=== PATIENT | female | born 1940 | race Hispanic/Latino ===

== ENCOUNTER 2022-08-01 03:35 | Inpatient (IN) | payer MEDICARE ==
[2022-08-01 08:06] LABS: Alanine Aminotransferase 28 units/L (7-56); Albumin 3.1 g/dL (3.9-5); Blood Urea Nitrogen 27 mg/dL (7-17); Calcium 8.8 mg/dL (8.4-10.2); Hemolysis Index 8
[2022-08-01 08:12] LABS: BUN/Creatinine Ratio 68
--- NOTE | 2022-08-01 08:19 | XRay Report ---
XR hip 2-3V LT INDICATION: trauma. COMPARISON: None available. FINDINGS: Previous internal fixation of the proximal left femur. No appreciable acute fracture or hardware frac ture. 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 Signer Name: Néstor Amador MD Signed: 08/01/2022 8:15 AM Workstation Name: [id number]
--- NOTE | 2022-08-01 08:19 | XRay Report ---
CHEST 1 VIEW 08/01/2022 7:12 AM INDICATION / CLINICAL INFORMATION: sob. COMPARISON: None available. FINDINGS: SUPPORT DEVICES: None. HEART / MEDIASTINUM: No significant abnormality. LUNGS / PLEURA: No significant pulmonary or pleural abnormality. No pneumothorax. ADDITIONAL FINDINGS: No significant additional findings. IMPRESSION: 1. No acute findings. Signer Name: Néstor Amador MD Signed: 08/01/2022 8:14 AM Workstation Name: [id number]
[2022-08-01 08:24] LABS: Basophils % (Auto) 0.2 % (0.0-1.8); Eosinophils # (Auto) 0.2 K/mm3 (0.0-0.4); Hematocrit 38.8 % (30.3-42.9); Hemoglobin 12.9 gm/dl (10.1-14.3); Lymphocytes # (Auto) 1.5 K/mm3 (1.2-5.4); Lymphocytes % (Auto) 19.3 % (13.4-35.0); Mean Corpuscular HGB Conc 33 % (30-34); Mean Corpuscular Volume 88 fl (79-97); Monocytes # (Auto) 0.7 K/mm3 (0.0-0.8); Monocytes % (Auto) 9.1 % (0.0-7.3); Platelet Count 159 K/mm3 (140-440); Red Blood Count 4.42 M/mm3 (3.65-5.03); Red Cell Distribution Width 14.3 % (13.2-15.2)
--- NOTE | 2022-08-01 10:47 | XRay Report ---
LEFT KNEE 2 VIEW(S) INDICATION / CLINICAL INFORMATION: fall COMPARISON: None available. FINDINGS: BONES / JOINT(S): There is an oblique spiral type distal left femoral diaphyseal fracture with signif icant fracture fragment overlap and one shaft length displacement. No additional fractures. There is advanced osteopenia. Degenerative changes are noted at the left knee. Cortical plate with screw fixat ion is seen across proximal tibial fracture. There appears to be a healed fibular fracture. SOFT TISSUES: Soft tissue swelling is noted about the fracture. ADDITIONAL FINDINGS: None. IMPRESSION: 1. Distal left humerus fracture as described above. Advanced osteopenia. Signer Name: William Hoffman MD Signed: 08/01/2022 10:43 AM Workstation Name: [id number]
[2022-08-01] MEDS ORDERED: SODIUM CHLORIDE 0.9% 1000 ML 1,000 ML IV ONE (12:21)
--- NOTE | 2022-08-01 13:35 | Consultation ---
History of Present Illness - HPI Consult date: 08/01/22 Consult reason: joint pain (82 y/o female with c/o left thigh pain and deformity after a fall at home, unable to weightbear afterwards..Brought to our ED where plain xrays taken reveal a displace distal femur fracture...PMHx sign for previo us ORIF's right hip and tibial plateau fx's...), fracture Medications and Allergies Allergies Allergy/AdvReac Type Severity Reaction Status Date / Time No Known Allergies Allergy Unverified 08/01/22 03:39 Physical Examination - Physical exam Narrative exam: left LE - + shortening/deformity, skin intact, tender at distal femur, compartments soft, distal n/v intact... plain xrays reviewed by me and show moderated displaced distal third femur fx, + osteopenic bone quality noted... Eyes: PERRL ENT: Positive: clear oral mucosa Respiratory effort: normal Respiratory: bilateral: CTA Rhythm: regular Heart Sounds: Positive: S1 & S2 General gastrointestinal: Positive: soft, non-tender, non-distended, normal bowel sounds Integumentary: clear, warm, dry Neurologic: Positive: CNII-XII intact, moves all extremities, gait normal. Negative: focal deficits Assessment and Plan assessment - left distal femur fx with displacement plan - long leg posterior splint, will require operative intervention with IM nail, followed PT and rehab....
--- NOTE | 2022-08-01 15:48 | Anesthesia Consultation ---
Anesthesia Consult and Med Hx Date of service: 08/01/22 - Airway Anesthetic Teeth Evaluation: Dentures (Upper and lower full plates) ROM Head & Neck: Adequate Mental/Hyoid Distance: Adequate Mallampati Class: Class I Intubation Access Assessment: Good - Pulmonary Exam CTA: Yes - Pre-Operative Health Status ASA Pre-Surgery Classification: ASA2 Proposed Anesthetic Plan: General - Pulmonary Hx Smoking: No Hx Asthma: No SOB: No - Cardiovascular System Hx Hypertension: No Hx Angina: No Hx Heart Murmur: Yes - Central Nervous System Hx Neuromuscular Disorder: No Hx Seizures: No Hx Psychiatric Problems: No - Endocrine Hx Renal Disease: No Hx Liver Disease: No Hx Insulin Dependent Diabetes: No Hx Non-Insulin Dependent Diabetes: No Hx Thyroid Disease: No - Hematic Hx Anemia: No - Other Systems Hx Alcohol Use: No Hx Obesity: No - Additional Comments Anesthesia Medical History Comments: No hx. of anesthesia related complications
[2022-08-01] MEDS ORDERED: ONDANSETRON 4 MG/2 ML INJ IV PRN (19:00)
--- NOTE | 2022-08-01 19:23 | History and Physical Report ---
History of Present Illness Date of examination: 08/01/22 Date of admission: 08/01/2022 Chief complaint: Severe pain in the left lower extremity above the knee for 2 days History of present illness: 82-year-old with history of severe dementia had a fall at home yesterday and is in severe pain. at bedside. Very poor historian. says she had a fall and unable to walk since then. Pain is about 10 on a scale of 1-10. Patient had a right hip fracture in the past. Any movement is an exacerbating factor. Rest is a relieving factor. Pain is sharp in nature. Patient is alert but not oriented to time and place and person. wants a full code. CODE STATUS was discussed in the emergency room. Past History Past Medical History: other (Severe dementia) Past Surgical History: total hip replacement (Left hip,), Other (Left tibial fracture in the past with internal fixation) Social history: , lives with family, full code, other (Full code. Pa tient is nearly bedridden and is supportive) Family history: hypertension Medications and Allergies Allergies Allergy/AdvReac Type Severity Reaction Status Date / Time No Known Allergies Allergy Unverified 08/01/22 03:39 Review of Systems All systems: negative Musculoskeletal: shooting leg pain, frequent falls, fractures Neurological: weakness, memory loss, gait dysfunction Exam - Constitutional Vitals: Temp Pulse Resp BP Pulse Ox 98.7 F 108 H 20 112/74 97 08/01/22 17:58 08/01/22 17:58 08/01/22 17:58 08/01/22 17:58 08/01/22 17:58 General appearance: Present: mild distress, well-nourished - EENT Eyes: Present: PERRL ENT: hearing intact, clear oral mucosa - Neck Neck: Present: supple, normal ROM - Respiratory Respiratory effort: normal Respiratory: bilateral: CTA - Cardiovascular Rhythm: regular Heart Sounds: Present: S1 & S2. Absent: rub, click - Extremities Extremities: no ischemia, pulses intact, pulses symmetrical, No edema, abnormal (Decreased range of motion of the left knee) Peripheral Pulses: within normal limits - Abdominal General gastrointestinal: Present: soft, non-tender, non-distended, normal bowel sounds Female genitourinary: Present: normal - Integumentary Integumentary: Present: clear, warm, dry - Musculoskeletal Musculoskeletal: generalized weakness - Psychiatric Psychiatric: other (Alert but not oriented) - Neurologic Neurologic: CNII-XII intact, moves all extremities, other (Alert but not oriented) Results - Labs CBC & Chem 7: 08/02/22 04:24 08/02/22 04:24 Labs: Laboratory Last Values WBC 7.8 K/mm3 (4.5-11.0) 08/01/22 07:14 RBC 4.42 M/mm3 (3.65-5.03) 08/01/22 07:14 Hgb 12.9 gm/dl (10.1-14.3) 08/01/22 07:14 Hct 38.8 % (30.3-42.9) 08/01/22 07:14 MCV 88 fl (79-97) 08/01/22 07:14 MCH 29 pg (28-32) 08/01/22 07:14 MCHC 33 % (30-34) 08/01/22 07:14 RDW 14.3 % (13.2-15.2) 08/01/22 07:14 Plt Count 159 K/mm3 (140-440) 08/01/22 07:14 Lymph % (Auto) 19.3 % (13.4-35.0) 08/01/22 07:14 Real % (Auto) 9.1 % (0.0-7.3) H 08/01/22 07:14 Eos % (Auto) 2.0 % (0.0-4.3) 08/01/22 07:14 Baso % (Auto) 0.2 % (0.0-1.8) 08/01/22 07:14 Lymph # (Auto) 1.5 K/mm3 (1.2-5.4) 08/01/22 07:14 Real # (Auto) 0.7 K/mm3 (0.0-0.8) 08/01/22 07:14 Eos # (Auto) 0.2 K/mm3 (0.0-0.4) 08/01/22 07:14 Baso # (Auto) 0.0 K/mm3 (0.0-0.1) 08/01/22 07:14 Seg Neutrophils % 69.4 % (40.0-70.0) 08/01/22 07:14 Seg Neutrophils # 5.4 K/mm3 (1.8-7.7) 08/01/22 07:14 Sodium 149 mmol/L (137-145) H 08/01/22 07:14 Potassium 4.0 mmol/L (3.6-5.0) 08/01/22 07:14 Chloride 112.0 mmol/L (98-107) H 08/01/22 07:14 Carbon Dioxide 25 mmol/L (22-30) 08/01/22 07:14 Anion Gap 16 mmol/L 08/01/22 07:14 BUN 27 mg/dL (7-17) H 08/01/22 07:14 Creatinine 0.4 mg/dL (0.6-1.2) L 08/01/22 07:14 Estimated GFR > 60 ml/min 08/01/22 07:14 BUN/Creatinine Ratio 68 % 08/01/22 07:14 Glucose 106 mg/dL (65-100) H 08/01/22 07:14 Calcium 8.8 mg/dL (8.4-10.2) 08/01/22 07:14 Total Bilirubin 1.30 mg/dL (0.1-1.2) H 08/01/22 07:14 AST 41 units/L (5-40) H 08/01/22 07:14 ALT 28 units/L (7-56) 08/01/22 07:14 Alkaline Phosphatase 395 units/L (35-129) H 08/01/22 07:14 Total Protein 5.7 g/dL (6.3-8.2) L 08/01/22 07:14 Albumin 3.1 g/dL (3.9-5) L 08/01/22 07:14 Albumin/Globulin Ratio 1.2 % 08/01/22 07:14 - Imaging and Cardiology Imaging and Cardiology: Chest x-ray No acute findings Hip x-ray Previous internal fixation of the proximal left femur. No appreciable acute fracture or hardware fracture. Moderate degenerative disease of the left hip joint. Left knee x-ray Distal left femoral fracture. Oblique spiral type distal left femoral diaphyseal fracture with significant fracture fragment overlap and 1 shaft alignment displacement. Cortical plate with screw fixation is seen across proximal tibial fracture which is old 1. Assessment and Plan Advance Directives: Yes (Full code) VTE prophylaxis?: Chemical Plan of care discussed with patient/family: Yes - Patient Problems (1) Left femoral shaft fracture Current Visit: Yes Status: Acute Qualifiers: Encounter type: initial encounter Fracture morphology: oblique Fracture alignment: displaced Plan to address problem: Pain control Orthopedics Dr. Quiñones consulted Possible surgery for fixation today or tomorrow (2) Hypernatremia Current Visit: Yes Status: Acute Plan to address problem: IV fluids for now (3) Dementia Current Visit: Yes Status: Chronic Qualifiers: Dementia type: vascular dementia Plan to address problem: Advanced dementia Supportive care wants a full code CODE STATUS was discussed (4) DVT prophylaxis Current Visit: Yes Status: Acute Plan to address problem: On anticoagulation GI prophylaxis (5) Advance care planning Current Visit: Yes Status: Acute Plan to address problem: Disease education conducted care plan discussed with diagnosis and uncertain prognosis discussed with . Patient is full code as per . acknowledged understanding with care plan. +30 minutes.
[2022-08-01] MEDS ORDERED: HYDROmorphone 0.5 MG/0.5 ML INJ IV PRN (19:24)
[2022-08-01] MEDS ORDERED: MORPHINE 2 MG/1 ML INJ IV PRN (19:24)
[2022-08-01] MEDS ORDERED: ACETAMINOPHEN 325 MG TAB PO PRN (19:24)
[2022-08-01] MEDS ORDERED: D5W/0.9% NACL 1,000 ML IV SCH (20:00)
[2022-08-01] MEDS ORDERED: METOPROLOL TARTRATE 5 MG/5 ML INJ IV NR (21:00)
[2022-08-01] MEDS: HEPARIN 5,000 UNIT/1 ML VIAL SUB-Q SCH (21:41)
[2022-08-02 05:05] LABS: Basophils % (Auto) 0.2 % (0.0-1.8); Eosinophils # (Auto) 0.1 K/mm3 (0.0-0.4); Eosinophils % (Auto) 1.5 % (0.0-4.3); Hematocrit 34.6 % (30.3-42.9); Hemoglobin 11.6 gm/dl (10.1-14.3); Lymphocytes # (Auto) 0.9 K/mm3 (1.2-5.4); Lymphocytes % (Auto) 14.2 % (13.4-35.0); Mean Corpuscular HGB Conc 34 % (30-34); Mean Corpuscular Volume 87 fl (79-97); Monocytes # (Auto) 0.5 K/mm3 (0.0-0.8); Monocytes % (Auto) 7.4 % (0.0-7.3); Platelet Count 131 K/mm3 (140-440); Red Blood Count 3.97 M/mm3 (3.65-5.03); Red Cell Distribution Width 14.5 % (13.2-15.2)
[2022-08-02 05:27] LABS: Alanine Aminotransferase 26 units/L (7-56); Albumin 2.9 g/dL (3.9-5); Blood Urea Nitrogen 24 mg/dL (7-17); Calcium 8.3 mg/dL (8.4-10.2); Hemolysis Index 2
[2022-08-02 05:48] LABS: BUN/Creatinine Ratio 80
[2022-08-02] MEDS: HEPARIN 5,000 UNIT/1 ML VIAL SUB-Q SCH ×2 (09:20→21:46)
[2022-08-02] MEDS ORDERED: LACTATED RINGERS 1,000 ML ONE (10:14)
[2022-08-02] MEDS ORDERED: propofoL 200 MG/20 ML VIAL IV ONE (10:28)
[2022-08-02] MEDS ORDERED: LIDOCAINE MPF (2%) 20 MG/1 ML VIAL 5 ML ONE (10:28)
[2022-08-02] MEDS ORDERED: ONDANSETRON 4 MG/2 ML INJ ONE (10:28)
[2022-08-02] MEDS ORDERED: fentaNYL 100 MCG/2 ML INJ ONE (10:28)
--- NOTE | 2022-08-02 10:35 | Anesthesia Day of Surgery ---
Anesthesia Day of Surgery - Day of Surgery Patient Examined: Yes Patient H&P Reviewed: Yes Patient is NPO: Yes Beta Blockers: No Cardiac Clearance: No Pulmonary Clearance: No
[2022-08-02] MEDS ORDERED: BUPIVACAINE/PF (0.25%) 2.5 MG/ML 10 ML VIAL INFILTRATI ONE ×2 (10:46→11:47)
[2022-08-02] MEDS ORDERED: KETOROLAC 30 MG/1 ML INJ ONE (10:46)
[2022-08-02] MEDS ORDERED: SODIUM CHLORIDE 0.9% 100 ML ONE (10:46)
[2022-08-02] MEDS ORDERED: MORPHINE 10 MG/1 ML INJ ONE (10:46)
[2022-08-02] MEDS ORDERED: SODIUM CHLORIDE 0.9% 50 ML ONE (10:46)
[2022-08-02] MEDS ORDERED: ceFAZolin 1 GM VIAL ONE ×2 (11:18)
[2022-08-02] MEDS ORDERED: dexAMETHasone 20 MG/5 ML VIAL ONE (11:44)
[2022-08-02] MEDS ORDERED: KETOROLAC 30 MG/1 ML INJ IV ONE (11:46)
[2022-08-02] MEDS ORDERED: MORPHINE 10 MG/1 ML INJ IV ONE (11:47)
[2022-08-02] MEDS ORDERED: HYDROmorphone 0.5 MG/0.5 ML INJ ONE ×2 (11:47→12:40)
[2022-08-02] MEDS ORDERED: SODIUM CHLORIDE 0.9% 100 ML IVPB IV ONE (11:48)
[2022-08-02] MEDS ORDERED: SODIUM CHLORIDE 0.9% 50 ML IVPB IV ONE (11:49)
[2022-08-02] MEDS ORDERED: ACETAMINOPHEN 650 MG RECT SUPP PR PRN (12:36)
[2022-08-02] MEDS ORDERED: MORPHINE 4 MG/1 ML INJ IV PRN (12:36)
--- NOTE | 2022-08-02 12:46 | Procedure Note ---
Date of procedure: 08/02/22 Pre-op diagnosis: Displaced left distal femur fracture Post-op diagnosis: same Procedure: Closed reduction and insertion of intramedullary nail left distal femur Procedure The patient was brought to the OR and placed on the OR table in the supine position following induction and intubation by anesthesia the patient's left lower extremity was prepped from the hip down to the right foot. A timeout procedure was done to identify the patient and the correct operative site. The leg was exsanguinated followed by inflation of the pneumatic tourniquet to 300 mmHg. An incision was made at the inferior pole of the patella and taken down distally to the tibial tubercle incision was carried through skin and through the patella tendon with the knee in a 40/90 flexed position a guide pin was inserted under C-arm visualization care was taken to visualize both in the AP and lateral planes next the guidepin was then overreamed following this a guidewire was inserted into the distal fragment and across to fracture approximately the wire was then placed in the proximal femur just at the level of the IM hip nail. Distal femur was sequentially reamed up to a 13.5 mm millimeter diameter measuring the length of the jannet a 11 x 200 mm short jannet was selected again with the knee and a 90 flexed position the intramedullary jannet was inserted in a retrograde manner into the distal femur across the fracture site and into the proximal fragment Using the targeting device was placed into the distal femur fragment along the lateral border measuring the lengths a 65 and a 70 mm long screws were selected next the knee and leg was brought into full extension traction was placed on the leg to reduce the distal femur fracture into a more reduced position Again using the C-arm fluoroscope a proximal locking screws were inserted measuring 30 and 27.5mm in length following this the wound was copiously irrigated the patellar tendon was repaired along with the soft tissues. post op Dressings were applied the patient tolerated the procedure there were no complication. He was extubated and was taken to postanesthesia recovery in stable condition Anesthesia: GETA Surgeon: ROBBY BRANDT Estimated blood loss: 50-100ml Pathology: none Condition: stable Disposition: PACU
--- NOTE | 2022-08-02 12:58 | XRay Report ---
INTRAOPERATIVE FLUOROSCOPY: LEFT FEMUR INDICATION: Lt. IM Femur. TECHNIQUE: Intraoperative spot images were obtained during the procedure. FINDINGS: There is expected positioning of internal fixation of the left femur with improved alignment of the d istal femoral shaft fracture. Please see operative report for further details. Fluoroscopy Time: 60 seconds. Fluoroscopy Images: 4. Signer Name: Sulaiman Soriano MD Signed: 08/02/2022 12:54 PM Workstation Name: [id number]
[2022-08-02] MEDS: KETOROLAC 30 MG/1 ML INJ IV PRN (13:15)
--- NOTE | 2022-08-02 13:50 | Progress Note ---
Assessment and Plan Assessment and plan: #Left femoral shaft fracture status post closed repair with intramedullary nail insertion and left femur Visualized on x-ray of left femur Orthopedic surgery consulted; appreciate recs Continue as needed analgesics. Physical and Occupational Therapy consulted; pending recs. #Hypernatremia Sodium 149 Likely secondary to dehydration/decreased p.o. intake. Encouraging patient to consume food after surgery. If dementia prevents patient from consuming p.o. intake, IV fluids can be initiated. #Baseline dementia Continue supportive management and redirection. #Advanced care planning -Disease education conducted, care plan discussed, diagnoses discussed, prognosis discussed, and patient acknowledges understanding with care plan -Time: +30 min Disposition Plan: Continue medical management Total Time Spent with Patient (Minutes): 45 minutes History Interval history: No acute events overnight. Hospitalist Physical - Constitutional Vitals: Temp Pulse Resp BP Pulse Ox 97.8 F 115 H 12 115/71 99 08/02/22 13:15 08/02/22 13:15 08/02/22 13:15 08/02/22 13:15 08/02/22 13:15 General appearance: Present: mild distress, well-nourished - EENT Eyes: Present: PERRL, EOM intact ENT: hearing intact, clear oral mucosa - Neck Neck: Present: supple, normal ROM - Respiratory Respiratory effort: normal Respiratory: bilateral: CTA - Cardiovascular Rhythm: regular Heart Sounds: Present: S1 & S2 - Extremities Extremities: no ischemia, pulses intact, pulses symmetrical, No edema, normal temperature, normal color Extremity abnormal: tenderness (Significant tenderness of left femur) Peripheral Pulses: within normal limits - Abdominal General gastrointestinal: soft, non-tender, non-distended, normal bowel sounds - Integumentary Integumentary: Present: clear, warm, dry - Psychiatric Psychiatric: appropriate mood/affect, intact judgment & insight, cooperative - Neurologic Neurologic: CNII-XII intact - Allied Health Allied health notes reviewed: nursing Results - Labs CBC & Chem 7: 08/02/22 04:24 08/02/22 04:24 Labs: Laboratory Last Values WBC 6.7 K/mm3 (4.5-11.0) 08/02/22 04:24 RBC 3.97 M/mm3 (3.65-5.03) 08/02/22 04:24 Hgb 11.6 gm/dl (10.1-14.3) 08/02/22 04:24 Hct 34.6 % (30.3-42.9) 08/02/22 04:24 MCV 87 fl (79-97) 08/02/22 04:24 MCH 29 pg (28-32) 08/02/22 04:24 MCHC 34 % (30-34) 08/02/22 04:24 RDW 14.5 % (13.2-15.2) 08/02/22 04:24 Plt Count 131 K/mm3 (140-440) L 08/02/22 04:24 Lymph % (Auto) 14.2 % (13.4-35.0) 08/02/22 04:24 Reagan % (Auto) 7.4 % (0.0-7.3) H 08/02/22 04:24 Eos % (Auto) 1.5 % (0.0-4.3) 08/02/22 04:24 Baso % (Auto) 0.2 % (0.0-1.8) 08/02/22 04:24 Lymph # (Auto) 0.9 K/mm3 (1.2-5.4) L 08/02/22 04:24 Reagan # (Auto) 0.5 K/mm3 (0.0-0.8) 08/02/22 04:24 Eos # (Auto) 0.1 K/mm3 (0.0-0.4) 08/02/22 04:24 Baso # (Auto) 0.0 K/mm3 (0.0-0.1) 08/02/22 04:24 Seg Neutrophils % 76.7 % (40.0-70.0) H 08/02/22 04:24 Seg Neutrophils # 5.1 K/mm3 (1.8-7.7) 08/02/22 04:24 Sodium 149 mmol/L (137-145) H 08/02/22 04:24 Potassium 3.8 mmol/L (3.6-5.0) 08/02/22 04:24 Chloride 113.1 mmol/L (98-107) H 08/02/22 04:24 Carbon Dioxide 25 mmol/L (22-30) 08/02/22 04:24 Anion Gap 15 mmol/L 08/02/22 04:24 BUN 24 mg/dL (7-17) H 08/02/22 04:24 Creatinine 0.3 mg/dL (0.6-1.2) L 08/02/22 04:24 Estimated GFR > 60 ml/min 08/02/22 04:24 BUN/Creatinine Ratio 80 % 08/02/22 04:24 Glucose 85 mg/dL (65-100) 08/02/22 04:24 Calcium 8.3 mg/dL (8.4-10.2) L 08/02/22 04:24 Total Bilirubin 1.40 mg/dL (0.1-1.2) H 08/02/22 04:24 AST 42 units/L (5-40) H 08/02/22 04:24 ALT 26 units/L (7-56) 08/02/22 04:24 Alkaline Phosphatase 411 units/L (35-129) H 08/02/22 04:24 Total Protein 5.3 g/dL (6.3-8.2) L 08/02/22 04:24 Albumin 2.9 g/dL (3.9-5) L 08/02/22 04:24 Albumin/Globulin Ratio 1.2 % 08/02/22 04:24 Robbins/IV: Voiding Method External Female Catheter Active Medications - Current Medications Current Medications: Generic Name Dose Route Start Last Admin Trade Name Freq PRN Reason Stop Dose Admin Acetaminophen 650 mg 08/01/22 19:24 Acetaminophen 325 Mg Tab PO Q4H PRN Pain MILD(1-3)/Fever >100.5/SESAY Acetaminophen 650 mg 08/02/22 12:36 Acetaminophen 650 Mg Rect Supp CO Q4H PRN Pain MILD(1-3)/Fever >100.5/SESAY Enoxaparin Sodium 40 mg 08/03/22 10:00 Enoxaparin 40 Mg/0.4 Ml Inj SUB-Q QDAY [facility] Heparin Sodium (Porcine) 5,000 unit 08/01/22 22:00 08/02/22 09:20 Heparin 5,000 Unit/1 Ml Vial SUB-Q Not Given Q12HR FELI Hydromorphone HCl 0.5 mg 08/01/22 19:24 Hydromorphone 0.5 Mg/0.5 Ml Inj IV Q3H PRN Pain , Severe (7-10) Dextrose/Sodium Chloride 1,000 mls @ 100 mls/hr 08/01/22 20:00 08/01/22 21:41 D5ns IV 100 mls/hr DIRECT FELI Administration Ketorolac Tromethamine 15 mg 08/02/22 12:36 08/02/22 13:15 Ketorolac 30 Mg/1 Ml Inj IV 08/07/22 12:35 15 mg Q6H PRN Administration Pain, Moderate (4-6) Morphine Sulfate 2 mg 08/01/22 19:24 Morphine 2 Mg/1 Ml Inj IV Q4H PRN Pain, Moderate (4-6) Morphine Sulfate 2 mg 08/02/22 12:36 Morphine 2 Mg/1 Ml Inj IV Q4H PRN Pain, Moderate (4-6) Morphine Sulfate 4 mg 08/02/22 12:36 Morphine 4 Mg/1 Ml Inj IV Q4H PRN Pain , Severe (7-10) Ondansetron HCl 4 mg 08/01/22 19:00 Ondansetron 4 Mg/2 Ml Inj IV Q8H PRN Nausea And Vomiting Sodium Chloride 10 ml 08/01/22 22:00 08/02/22 09:20 Sodium Chloride 0.9% 10 Ml Flush Syringe IV 10 ml BID FELI Administration Sodium Chloride 10 ml 08/01/22 19:00 Sodium Chloride 0.9% 10 Ml Flush Syringe IV PRN PRN LINE FLUSH Sodium Chloride 10 ml 08/02/22 13:00 Sodium Chloride 0.9% 10 Ml Flush Syringe IV 08/12/22 23:59 PRN NR
--- NOTE | 2022-08-02 14:40 | Post Anesthesia Evaluation ---
- Post Anesthesia Evaluation Patient Participated: Yes Airway Patent: Yes Stable Respiratory Function: Yes Nausea/Vomiting: No Temp > 96.8F: Yes Pain Manageable: Yes Adequeate Hydration: Yes Anesthesia Complications: No Block Receding Appropriately: Not Applicable Patient on Ventilator: No
[2022-08-02] MEDS ORDERED: DEXTROSE 5% IN WATER 1,000 ML IV SCH (15:00)
[2022-08-02] MEDS ORDERED: METOPROLOL TARTRATE 5 MG/5 ML INJ IV ONE (15:30)
[2022-08-02] MEDS: DEXTROSE 5% IN WATER 1,000 ML IV SCH (18:15)
[2022-08-02] MEDS ORDERED: SODIUM CHLORIDE 0.9% 1000 ML 1,000 ML IV ONE (22:00)
[2022-08-03 08:24] LABS: Hematocrit 29.6 % (30.3-42.9); Hemoglobin 9.8 gm/dl (10.1-14.3); Lymphocytes # (Auto) 0.7 K/mm3 (1.2-5.4); Lymphocytes % (Auto) 7.1 % (13.4-35.0); Mean Corpuscular HGB Conc 33 % (30-34); Mean Corpuscular Volume 88 fl (79-97); Monocytes # (Auto) 0.6 K/mm3 (0.0-0.8); Monocytes % (Auto) 6.7 % (0.0-7.3); Platelet Count 154 K/mm3 (140-440); Red Blood Count 3.37 M/mm3 (3.65-5.03); Red Cell Distribution Width 14.2 % (13.2-15.2)
[2022-08-03 08:32] LABS: Blood Urea Nitrogen 28 mg/dL (7-17); Calcium 7.9 mg/dL (8.4-10.2); Hemolysis Index 0
[2022-08-03 08:33] LABS: BUN/Creatinine Ratio 56
--- NOTE | 2022-08-03 10:11 | Progress Note ---
Assessment and Plan Assessment and plan: #Left femoral shaft fracture status post closed repair with intramedullary nail insertion and left femur Visualized on x-ray of left femur Orthopedic surgery consulted; appreciate recs Continue as needed analgesics. Physical and Occupational Therapy consulted; pending recs. #Hypernatremiaresolved Sodium 149--> 143 Likely secondary to dehydration/decreased p.o. intake. Encouraging patient to consume food after surgery. If dementia prevents patient from consuming p.o. intake, IV fluids can be initiated. #Baseline dementia Continue supportive management and redirection. #Advanced care planning -Disease education conducted, care plan discussed, diagnoses discussed, prognosis discussed, and patient acknowledges understanding with care plan -Time: +30 min Disposition Plan: Continue medical management Total Time Spent with Patient (Minutes): 45 minutes History Interval history: Patient underwent repair of closed left distal femur fracture with placement of intramedullary nail by orthopedic surgery. Patient tolerated the procedure well. Hospitalist Physical - Constitutional Vitals: Temp Pulse Resp BP Pulse Ox 97.6 F 77 18 96/58 100 08/03/22 05:29 08/03/22 05:29 08/03/22 05:29 08/03/22 05:29 08/03/22 08:30 General appearance: Present: mild distress, well-nourished, other (demented at baseline) - EENT Eyes: Present: PERRL, EOM intact ENT: hearing intact, clear oral mucosa, other (dentures in place) - Neck Neck: Present: supple, normal ROM - Respiratory Respiratory effort: normal Respiratory: bilateral: CTA - Cardiovascular Rhythm: regular Heart Sounds: Present: S1 & S2 - Extremities Extremities: no ischemia, pulses intact, pulses symmetrical, No edema, normal temperature, normal color Extremity abnormal: tenderness (Significant tenderness of L lower femur (at incision site)) Peripheral Pulses: within normal limits - Abdominal General gastrointestinal: soft, non-tender, non-distended, normal bowel sounds - Integumentary Integumentary: Present: clear, warm, dry - Psychiatric Psychiatric: agitated, other (demented at baseline; AAO x0) - Neurologic Neurologic: CNII-XII intact - Allied Health Allied health notes reviewed: nursing Results - Labs CBC & Chem 7: 08/03/22 07:48 08/03/22 07:48 Labs: Laboratory Last Values WBC 9.3 K/mm3 (4.5-11.0) 08/03/22 07:48 RBC 3.37 M/mm3 (3.65-5.03) L 08/03/22 07:48 Hgb 9.8 gm/dl (10.1-14.3) L 08/03/22 07:48 Hct 29.6 % (30.3-42.9) L 08/03/22 07:48 MCV 88 fl (79-97) 08/03/22 07:48 MCH 29 pg (28-32) 08/03/22 07:48 MCHC 33 % (30-34) 08/03/22 07:48 RDW 14.2 % (13.2-15.2) 08/03/22 07:48 Plt Count 154 K/mm3 (140-440) 08/03/22 07:48 Lymph % (Auto) 7.1 % (13.4-35.0) L 08/03/22 07:48 [place] % (Auto) 6.7 % (0.0-7.3) 08/03/22 07:48 Eos % (Auto) 0.0 % (0.0-4.3) 08/03/22 07:48 Baso % (Auto) 0.0 % (0.0-1.8) 08/03/22 07:48 Lymph # (Auto) 0.7 K/mm3 (1.2-5.4) L 08/03/22 07:48 [place] # (Auto) 0.6 K/mm3 (0.0-0.8) 08/03/22 07:48 Eos # (Auto) 0.0 K/mm3 (0.0-0.4) 08/03/22 07:48 Baso # (Auto) 0.0 K/mm3 (0.0-0.1) 08/03/22 07:48 Seg Neutrophils % 86.2 % (40.0-70.0) H 08/03/22 07:48 Seg Neutrophils # 8.0 K/mm3 (1.8-7.7) H 08/03/22 07:48 Sodium 143 mmol/L (137-145) 08/03/22 07:48 Potassium 3.8 mmol/L (3.6-5.0) 08/03/22 07:48 Chloride 109.5 mmol/L (98-107) H 08/03/22 07:48 Carbon Dioxide 25 mmol/L (22-30) 08/03/22 07:48 Anion Gap 12 mmol/L 08/03/22 07:48 BUN 28 mg/dL (7-17) H 08/03/22 07:48 Creatinine 0.5 mg/dL (0.6-1.2) L D 08/03/22 07:48 Estimated GFR > 60 ml/min 08/03/22 07:48 BUN/Creatinine Ratio 56 % 08/03/22 07:48 Glucose 133 mg/dL (65-100) H 08/03/22 07:48 Calcium 7.9 mg/dL (8.4-10.2) L 08/03/22 07:48 Total Bilirubin 1.40 mg/dL (0.1-1.2) H 08/02/22 04:24 AST 42 units/L (5-40) H 08/02/22 04:24 ALT 26 units/L (7-56) 08/02/22 04:24 Alkaline Phosphatase 411 units/L (35-129) H 08/02/22 04:24 Total Protein 5.3 g/dL (6.3-8.2) L 08/02/22 04:24 Albumin 2.9 g/dL (3.9-5) L 08/02/22 04:24 Albumin/Globulin Ratio 1.2 % 08/02/22 04:24 Robbins/IV: Voiding Method Incontinent Active Medications - Current Medications Current Medications: Generic Name Dose Route Start Last Admin Trade Name Freq PRN Reason Stop Dose Admin Acetaminophen 650 mg 08/01/22 19:24 Acetaminophen 325 Mg Tab PO Q4H PRN Pain MILD(1-3)/Fever >100.5/SESAY Acetaminophen 650 mg 08/02/22 12:36 Acetaminophen 650 Mg Rect Supp [place] Q4H PRN Pain MILD(1-3)/Fever >100.5/SESAY Enoxaparin Sodium 40 mg 08/03/22 10:00 Enoxaparin 40 Mg/0.4 Ml Inj SUB-Q QDAY FELI Hydromorphone HCl 0.5 mg 08/01/22 19:24 Hydromorphone 0.5 Mg/0.5 Ml Inj IV Q3H PRN Pain , Severe (7-10) Dextrose 1,000 mls @ 100 mls/hr 08/02/22 15:00 08/02/22 18:15 D5w IV 100 mls/hr DIRECT FELI Administration Ketorolac Tromethamine 15 mg 08/02/22 12:36 08/02/22 13:15 Ketorolac 30 Mg/1 Ml Inj IV 08/07/22 12:35 15 mg Q6H PRN Administration Pain, Moderate (4-6) Morphine Sulfate 2 mg 08/02/22 12:36 Morphine 2 Mg/1 Ml Inj IV Q4H PRN Pain, Moderate (4-6) Morphine Sulfate 4 mg 08/02/22 12:36 Morphine 4 Mg/1 Ml Inj IV Q4H PRN Pain , Severe (7-10) Ondansetron HCl 4 mg 08/01/22 19:00 Ondansetron 4 Mg/2 Ml Inj IV Q8H PRN Nausea And Vomiting Sodium Chloride 10 ml 08/01/22 22:00 08/02/22 21:47 Sodium Chloride 0.9% 10 Ml Flush Syringe IV 10 ml BID FELI Administration Sodium Chloride 10 ml 08/01/22 19:00 Sodium Chloride 0.9% 10 Ml Flush Syringe IV PRN PRN LINE FLUSH Sodium Chloride 10 ml 08/02/22 13:00 Sodium Chloride 0.9% 10 Ml Flush Syringe IV 08/12/22 23:59 PRN NR
--- NOTE | 2022-08-03 10:53 | Electrocardiograph Report ---
[facility] Test Date: 2022-08-02 Test Time: 14:58:58 Pat Name: NILSA ORDOÑEZ Department: Room: A389 1 Gender: F Vasc Tech: MANDIE : 1940 Requested By: GREG NORTH Order Number: [id number] Reading MD: Kleber Dodson Measurements Intervals [place] Rate: 119 P: 52 TN: 125 QRS: -28 QRSD: 89 T: 22 QT: 363 QTc: 511 Interpretive Statements Sinus tachycardia Atrial premature complex Consider left ventricular hypertrophy Prolonged QT interval No previous ECG available for comparison Electronically Signed On 08-03-2022 10:53:30 EDT by Kleber Dodson
[2022-08-03] MEDS: ENOXAPARIN 40 MG/0.4 ML INJ SUB-Q SCH (12:28)
[2022-08-03] MEDS: KETOROLAC 30 MG/1 ML INJ IV PRN (22:26)
[2022-08-04] MEDS: DEXTROSE 5% IN WATER 1,000 ML IV SCH (00:11)
[2022-08-04] MEDS: ENOXAPARIN 40 MG/0.4 ML INJ SUB-Q SCH ×2 (08:54→20:23)
[2022-08-04] MEDS ORDERED: MORPHINE 2 MG/1 ML INJ IV PRN (10:00)
--- NOTE | 2022-08-04 14:33 | Progress Note ---
Assessment and Plan Assessment and plan: #Left femoral shaft fracture status post closed repair with intramedullary nail insertion and left femur Visualized on x-ray of left femur Orthopedic surgery consulted; appreciate recs Continue as needed analgesics. Physical and Occupational Therapy consulted; pending recs. #Hypernatremiaresolved Sodium 149--> 143 Likely secondary to dehydration/decreased p.o. intake. Encouraging patient to consume food after surgery. If dementia prevents patient from consuming p.o. intake, IV fluids can be initiated. #Baseline dementia Continue supportive management and redirection. #Advanced care planning -Disease education conducted, care plan discussed, diagnoses discussed, prognosis discussed, and patient acknowledges understanding with care plan -Time: +30 min Disposition Plan: Continue medical management Total Time Spent with Patient (Minutes): 30 minutes History Interval history: No acute events overnight. Hospitalist Physical - Constitutional Vitals: Temp Pulse Resp BP Pulse Ox 97.6 F 101 H 18 130/79 93 08/04/22 11:50 08/04/22 11:50 08/04/22 11:50 08/04/22 11:50 08/04/22 11:50 General appearance: Present: no acute distress, well-nourished, other (demented at baseline) - EENT Eyes: Present: PERRL, EOM intact ENT: hearing intact, clear oral mucosa, dentition normal - Neck Neck: Present: supple, normal ROM - Respiratory Respiratory effort: normal Respiratory: bilateral: CTA - Cardiovascular Rhythm: regular Heart Sounds: Present: S1 & S2, systolic murmur - Extremities Extremities: no ischemia, pulses intact, pulses symmetrical, No edema, normal temperature, normal color Extremity abnormal: tenderness (Appropriate tenderness of left distal femur at incision site) Peripheral Pulses: within normal limits - Abdominal General gastrointestinal: soft, non-tender, non-distended, normal bowel sounds - Integumentary Integumentary: Present: clear, warm, dry - Psychiatric Psychiatric: agitated, other (Progressive dementia at baseline) - Neurologic Neurologic: CNII-XII intact - Allied Health Allied health notes reviewed: nursing Results - Labs CBC & Chem 7: 08/03/22 07:48 08/03/22 07:48 Labs: Laboratory Last Values WBC 9.3 K/mm3 (4.5-11.0) 08/03/22 07:48 RBC 3.37 M/mm3 (3.65-5.03) L 08/03/22 07:48 Hgb 9.8 gm/dl (10.1-14.3) L 08/03/22 07:48 Hct 29.6 % (30.3-42.9) L 08/03/22 07:48 MCV 88 fl (79-97) 08/03/22 07:48 MCH 29 pg (28-32) 08/03/22 07:48 MCHC 33 % (30-34) 08/03/22 07:48 RDW 14.2 % (13.2-15.2) 08/03/22 07:48 Plt Count 154 K/mm3 (140-440) 08/03/22 07:48 Lymph % (Auto) 7.1 % (13.4-35.0) L 08/03/22 07:48 [place] % (Auto) 6.7 % (0.0-7.3) 08/03/22 07:48 Eos % (Auto) 0.0 % (0.0-4.3) 08/03/22 07:48 Baso % (Auto) 0.0 % (0.0-1.8) 08/03/22 07:48 Lymph # (Auto) 0.7 K/mm3 (1.2-5.4) L 08/03/22 07:48 [place] # (Auto) 0.6 K/mm3 (0.0-0.8) 08/03/22 07:48 Eos # (Auto) 0.0 K/mm3 (0.0-0.4) 08/03/22 07:48 Baso # (Auto) 0.0 K/mm3 (0.0-0.1) 08/03/22 07:48 Seg Neutrophils % 86.2 % (40.0-70.0) H 08/03/22 07:48 Seg Neutrophils # 8.0 K/mm3 (1.8-7.7) H 08/03/22 07:48 Sodium 143 mmol/L (137-145) 08/03/22 07:48 Potassium 3.8 mmol/L (3.6-5.0) 08/03/22 07:48 Chloride 109.5 mmol/L (98-107) H 08/03/22 07:48 Carbon Dioxide 25 mmol/L (22-30) 08/03/22 07:48 Anion Gap 12 mmol/L 08/03/22 07:48 BUN 28 mg/dL (7-17) H 08/03/22 07:48 Creatinine 0.5 mg/dL (0.6-1.2) L D 08/03/22 07:48 Estimated GFR > 60 ml/min 08/03/22 07:48 BUN/Creatinine Ratio 56 % 08/03/22 07:48 Glucose 133 mg/dL (65-100) H 08/03/22 07:48 Calcium 7.9 mg/dL (8.4-10.2) L 08/03/22 07:48 Total Bilirubin 1.40 mg/dL (0.1-1.2) H 08/02/22 04:24 AST 42 units/L (5-40) H 08/02/22 04:24 ALT 26 units/L (7-56) 08/02/22 04:24 Alkaline Phosphatase 411 units/L (35-129) H 08/02/22 04:24 Total Protein 5.3 g/dL (6.3-8.2) L 08/02/22 04:24 Albumin 2.9 g/dL (3.9-5) L 08/02/22 04:24 Albumin/Globulin Ratio 1.2 % 08/02/22 04:24 Robbins/IV: Voiding Method External Female Catheter Active Medications - Current Medications Current Medications: Generic Name Dose Route Start Last Admin Trade Name Freq PRN Reason Stop Dose Admin Acetaminophen 650 mg 08/01/22 19:24 Acetaminophen 325 Mg Tab PO Q4H PRN Pain MILD(1-3)/Fever >100.5/SESAY Acetaminophen 650 mg 08/02/22 12:36 Acetaminophen 650 Mg Rect Supp [place] Q4H PRN Pain MILD(1-3)/Fever >100.5/SESAY Enoxaparin Sodium 40 mg 08/03/22 10:00 08/04/22 08:54 Enoxaparin 40 Mg/0.4 Ml Inj SUB-Q 40 mg QDAY FELI Administration Hydromorphone HCl 0.5 mg 08/01/22 19:24 Hydromorphone 0.5 Mg/0.5 Ml Inj IV Q3H PRN Pain , Severe (7-10) Ketorolac Tromethamine 15 mg 08/02/22 12:36 08/03/22 22:26 Ketorolac 30 Mg/1 Ml Inj IV 08/07/22 12:35 15 mg Q6H PRN Administration Pain, Moderate (4-6) Morphine Sulfate 2 mg 08/02/22 12:36 Morphine 2 Mg/1 Ml Inj IV Q4H PRN Pain, Moderate (4-6) Morphine Sulfate 4 mg 08/02/22 12:36 Morphine 4 Mg/1 Ml Inj IV Q4H PRN Pain , Severe (7-10) Morphine Sulfate 1.5 mg 08/04/22 10:00 Morphine 2 Mg/1 Ml Inj IV 08/05/22 09:59 ONCE PRN Pain , Severe (7-10) Ondansetron HCl 4 mg 08/01/22 19:00 Ondansetron 4 Mg/2 Ml Inj IV Q8H PRN Nausea And Vomiting Sodium Chloride 10 ml 08/01/22 22:00 08/03/22 21:12 Sodium Chloride 0.9% 10 Ml Flush Syringe IV 10 ml BID FELI Administration Sodium Chloride 10 ml 08/01/22 19:00 Sodium Chloride 0.9% 10 Ml Flush Syringe IV PRN PRN LINE FLUSH Sodium Chloride 10 ml 08/02/22 13:00 Sodium Chloride 0.9% 10 Ml Flush Syringe IV 08/12/22 23:59 PRN NR
[2022-08-04] MEDS: KETOROLAC 30 MG/1 ML INJ IV PRN (15:53)
[2022-08-05] MEDS: ENOXAPARIN 40 MG/0.4 ML INJ SUB-Q SCH (10:55)
[2022-08-05] MEDS: KETOROLAC 30 MG/1 ML INJ IV PRN (10:55)
--- NOTE | 2022-08-05 11:43 | Progress Note ---
Assessment and Plan Assessment and plan: #Left femoral shaft fracture status post closed repair with intramedullary nail insertion and left femur Visualized on x-ray of left femur Orthopedic surgery consulted; appreciate recs Continue as needed analgesics. Physical and Occupational Therapy consulted; recommended subacute rehab. #Hypernatremiaresolved Sodium 149--> 143 Likely secondary to dehydration/decreased p.o. intake. Encouraging patient to consume food after surgery. If dementia prevents patient from consuming p.o. intake, IV fluids can be initiated. #Baseline dementia Continue supportive management and redirection. #Advanced care planning -Disease education conducted, care plan discussed, diagnoses discussed, prognosis discussed, and patient acknowledges understanding with care plan -Time: +30 min #Discharge planning - Patient is pending rehab authorization. - Case management has been made aware. Disposition Plan: Pending placement Total Time Spent with Patient (Minutes): 45 minutes History Interval history: No acute events overnight. Hospitalist Physical - Constitutional Vitals: Temp Pulse Resp BP Pulse Ox 98.4 F 101 H 16 132/72 96 08/05/22 04:43 08/05/22 04:43 08/05/22 04:43 08/05/22 04:43 08/05/22 10:00 General appearance: Present: no acute distress, well-nourished, other (demented at baseline) - EENT Eyes: Present: PERRL, EOM intact ENT: hearing intact, clear oral mucosa - Neck Neck: Present: supple, normal ROM - Respiratory Respiratory effort: normal Respiratory: bilateral: CTA - Cardiovascular Rhythm: regular Heart Sounds: Present: S1 & S2 - Extremities Extremities: no ischemia, pulses intact, pulses symmetrical, No edema, normal temperature, normal color Extremity abnormal: tenderness (appropriate tenderness of L femur at incision site) Peripheral Pulses: within normal limits - Abdominal General gastrointestinal: soft, non-tender, non-distended, normal bowel sounds - Integumentary Integumentary: Present: clear, warm, dry - Psychiatric Psychiatric: other (dementia at baseline) - Neurologic Neurologic: CNII-XII intact - Allied Health Allied health notes reviewed: nursing, social work, case management Results - Labs CBC & Chem 7: 08/03/22 07:48 08/03/22 07:48 Labs: Laboratory Last Values WBC 9.3 K/mm3 (4.5-11.0) 08/03/22 07:48 RBC 3.37 M/mm3 (3.65-5.03) L 08/03/22 07:48 Hgb 9.8 gm/dl (10.1-14.3) L 08/03/22 07:48 Hct 29.6 % (30.3-42.9) L 08/03/22 07:48 MCV 88 fl (79-97) 08/03/22 07:48 MCH 29 pg (28-32) 08/03/22 07:48 MCHC 33 % (30-34) 08/03/22 07:48 RDW 14.2 % (13.2-15.2) 08/03/22 07:48 Plt Count 154 K/mm3 (140-440) 08/03/22 07:48 Lymph % (Auto) 7.1 % (13.4-35.0) L 08/03/22 07:48 [place] % (Auto) 6.7 % (0.0-7.3) 08/03/22 07:48 Eos % (Auto) 0.0 % (0.0-4.3) 08/03/22 07:48 Baso % (Auto) 0.0 % (0.0-1.8) 08/03/22 07:48 Lymph # (Auto) 0.7 K/mm3 (1.2-5.4) L 08/03/22 07:48 [place] # (Auto) 0.6 K/mm3 (0.0-0.8) 08/03/22 07:48 Eos # (Auto) 0.0 K/mm3 (0.0-0.4) 08/03/22 07:48 Baso # (Auto) 0.0 K/mm3 (0.0-0.1) 08/03/22 07:48 Seg Neutrophils % 86.2 % (40.0-70.0) H 08/03/22 07:48 Seg Neutrophils # 8.0 K/mm3 (1.8-7.7) H 08/03/22 07:48 Sodium 143 mmol/L (137-145) 08/03/22 07:48 Potassium 3.8 mmol/L (3.6-5.0) 08/03/22 07:48 Chloride 109.5 mmol/L (98-107) H 08/03/22 07:48 Carbon Dioxide 25 mmol/L (22-30) 08/03/22 07:48 Anion Gap 12 mmol/L 08/03/22 07:48 BUN 28 mg/dL (7-17) H 08/03/22 07:48 Creatinine 0.5 mg/dL (0.6-1.2) L D 08/03/22 07:48 Estimated GFR > 60 ml/min 08/03/22 07:48 BUN/Creatinine Ratio 56 % 08/03/22 07:48 Glucose 133 mg/dL (65-100) H 08/03/22 07:48 Calcium 7.9 mg/dL (8.4-10.2) L 08/03/22 07:48 Total Bilirubin 1.40 mg/dL (0.1-1.2) H 08/02/22 04:24 AST 42 units/L (5-40) H 08/02/22 04:24 ALT 26 units/L (7-56) 08/02/22 04:24 Alkaline Phosphatase 411 units/L (35-129) H 08/02/22 04:24 Total Protein 5.3 g/dL (6.3-8.2) L 08/02/22 04:24 Albumin 2.9 g/dL (3.9-5) L 08/02/22 04:24 Albumin/Globulin Ratio 1.2 % 08/02/22 04:24 Robbins/IV: Voiding Method External Female Catheter Active Medications - Current Medications Current Medications: Generic Name Dose Route Start Last Admin Trade Name Freq PRN Reason Stop Dose Admin Acetaminophen 650 mg 08/01/22 19:24 Acetaminophen 325 Mg Tab PO Q4H PRN Pain MILD(1-3)/Fever >100.5/SESAY Acetaminophen 650 mg 08/02/22 12:36 Acetaminophen 650 Mg Rect Supp [place] Q4H PRN Pain MILD(1-3)/Fever >100.5/SESAY Enoxaparin Sodium 40 mg 08/03/22 10:00 08/05/22 10:55 Enoxaparin 40 Mg/0.4 Ml Inj SUB-Q 40 mg QDAY FELI Administration Hydromorphone HCl 0.5 mg 08/01/22 19:24 Hydromorphone 0.5 Mg/0.5 Ml Inj IV Q3H PRN Pain , Severe (7-10) Ketorolac Tromethamine 15 mg 08/02/22 12:36 08/05/22 10:55 Ketorolac 30 Mg/1 Ml Inj IV 08/07/22 12:35 15 mg Q6H PRN Administration Pain, Moderate (4-6) Morphine Sulfate 2 mg 08/02/22 12:36 Morphine 2 Mg/1 Ml Inj IV Q4H PRN Pain, Moderate (4-6) Morphine Sulfate 4 mg 08/02/22 12:36 Morphine 4 Mg/1 Ml Inj IV Q4H PRN Pain , Severe (7-10) Ondansetron HCl 4 mg 08/01/22 19:00 Ondansetron 4 Mg/2 Ml Inj IV Q8H PRN Nausea And Vomiting Sodium Chloride 10 ml 08/01/22 22:00 08/04/22 22:29 Sodium Chloride 0.9% 10 Ml Flush Syringe IV 10 ml BID FELI Administration Sodium Chloride 10 ml 08/01/22 19:00 Sodium Chloride 0.9% 10 Ml Flush Syringe IV PRN PRN LINE FLUSH Sodium Chloride 10 ml 08/02/22 13:00 Sodium Chloride 0.9% 10 Ml Flush Syringe IV 08/12/22 23:59 PRN NR
[2022-08-06] MEDS: ENOXAPARIN 40 MG/0.4 ML INJ SUB-Q SCH (09:51)
[2022-08-06 13:15] LABS: Blood Urea Nitrogen 18 mg/dL (7-17); Hemolysis Index 2
[2022-08-06 13:25] LABS: Eosinophils # (Auto) 0.1 K/mm3 (0.0-0.4); Eosinophils % (Auto) 1.6 % (0.0-4.3); Hematocrit 31.5 % (30.3-42.9); Hemoglobin 10.8 gm/dl (10.1-14.3); Lymphocytes # (Auto) 0.9 K/mm3 (1.2-5.4); Mean Corpuscular HGB Conc 34 % (30-34); Mean Corpuscular Volume 86 fl (79-97); Monocytes # (Auto) 0.5 K/mm3 (0.0-0.8); Monocytes % (Auto) 6.1 % (0.0-7.3); Platelet Count 168 K/mm3 (140-440); Red Blood Count 3.65 M/mm3 (3.65-5.03); Red Cell Distribution Width 15.2 % (13.2-15.2)
[2022-08-06 14:05] LABS: BUN/Creatinine Ratio 45
--- NOTE | 2022-08-06 14:13 | Progress Note ---
Assessment and Plan s/p IM nail left distal femur continue observation..... Subjective Date of service: 08/05/22 Interval history: confused in bed, appears comfortable otherwise... Objective Vital signs: Vital Signs - 12hr 08/06/22 08/06/22 08/06/22 05:40 06:00 12:17 Temperature 98.3 F 97.8 F Pulse Rate 83 101 H Respiratory 20 16 Rate Blood Pressure 126/78 118/71 O2 Sat by Pulse 98 98 97 Oximetry 08/06/22 12:28 Temperature Pulse Rate Respiratory Rate Blood Pressure O2 Sat by Pulse 98 Oximetry Narrative Exam: post op dressing removed, incision and SW's ok.... - Labs CBC & BMP: 08/06/22 12:11 08/06/22 12:11 Labs: Abnormal lab results 08/06/22 08/06/22 Range/Units 12:11 12:11 Lymph % (Auto) 11.0 L (13.4-35.0) % Lymph # (Auto) 0.9 L (1.2-5.4) K/mm3 Seg Neutrophils % 81.3 H (40.0-70.0) % BUN 18 H (7-17) mg/dL Creatinine 0.4 L (0.6-1.2) mg/dL Calcium 8.0 L (8.4-10.2) mg/dL
[2022-08-06] MEDS: MORPHINE 2 MG/1 ML INJ IV PRN (18:36)
--- NOTE | 2022-08-06 18:43 | Progress Note ---
Assessment and Plan Assessment and plan: 82-year-old with history of severe dementia had a fall at home yesterday and is in severe pain. at bedside. Very poor historian. says she had a fall and unable to walk since then. Pain is about 10 on a scale of 1-10. Patient had a right hip fracture in the past. Any movement is an exacerbating factor. Rest is a relieving factor. Pain is sharp in nature. Patient is alert but not oriented to time and place and person. wants a full code. CODE STATUS was discussed in the emergency room. #Left femoral shaft fracture status post closed repair with intramedullary nail insertion and left femur Visualized on x-ray of left femur Orthopedic surgery consulted; appreciate recs Continue as needed analgesics. Physical and Occupational Therapy consulted; recommended subacute rehab. #Hypernatremiaresolved Sodium 149--> 143 Likely secondary to dehydration/decreased p.o. intake. Encouraging patient to consume food after surgery. If dementia prevents patient from consuming p.o. intake, IV fluids can be initiated. #Baseline dementia Continue supportive management and redirection. #Advanced care planning -Disease education conducted, care plan discussed, diagnoses discussed, prognosis discussed, and patient acknowledges understanding with care plan -Time: +30 min #Discharge planning - Patient is pending rehab authorization. - Case management has been made aware. Disposition Plan: Pending rehab placement, needs authorization from insurance Discussed with nursing staff and case consultant. History Interval history: Patient is alert, confused and disoriented with fluent speech. Unable to provide any relevant history. Discharge pending rehab placement. Hospitalist Physical - Constitutional Vitals: Temp Pulse Resp BP Pulse Ox 97.8 F 101 H 16 118/71 98 08/06/22 12:17 08/06/22 12:17 08/06/22 12:17 08/06/22 12:17 08/06/22 12:28 General appearance: Present: no acute distress, well-nourished, other (Very confused with history of dementia.) - EENT Eyes: Present: PERRL, EOM intact ENT: hearing intact, clear oral mucosa - Neck Neck: Present: supple - Respiratory Respiratory effort: normal Respiratory: bilateral: CTA - Cardiovascular Rhythm: regular - Extremities Extremities: No edema - Abdominal General gastrointestinal: soft, non-tender, non-distended, normal bowel sounds - Integumentary Integumentary: Absent: rash - Psychiatric Psychiatric: other (Anxious) - Neurologic Neurologic: other (Alert but very disoriented/confused with fluent speech.) Results - Labs CBC & Chem 7: 08/06/22 12:11 08/06/22 12:11 Labs: Laboratory Last Values WBC 8.1 K/mm3 (4.5-11.0) 08/06/22 12:11 RBC 3.65 M/mm3 (3.65-5.03) 08/06/22 12:11 Hgb 10.8 gm/dl (10.1-14.3) 08/06/22 12:11 Hct 31.5 % (30.3-42.9) 08/06/22 12:11 MCV 86 fl (79-97) 08/06/22 12:11 MCH 30 pg (28-32) 08/06/22 12:11 MCHC 34 % (30-34) 08/06/22 12:11 RDW 15.2 % (13.2-15.2) 08/06/22 12:11 Plt Count 168 K/mm3 (140-440) 08/06/22 12:11 Lymph % (Auto) 11.0 % (13.4-35.0) L 08/06/22 12:11 [place] % (Auto) 6.1 % (0.0-7.3) 08/06/22 12:11 Eos % (Auto) 1.6 % (0.0-4.3) 08/06/22 12:11 Baso % (Auto) 0.0 % (0.0-1.8) 08/06/22 12:11 Lymph # (Auto) 0.9 K/mm3 (1.2-5.4) L 08/06/22 12:11 [place] # (Auto) 0.5 K/mm3 (0.0-0.8) 08/06/22 12:11 Eos # (Auto) 0.1 K/mm3 (0.0-0.4) 08/06/22 12:11 Baso # (Auto) 0.0 K/mm3 (0.0-0.1) 08/06/22 12:11 Seg Neutrophils % 81.3 % (40.0-70.0) H 08/06/22 12:11 Seg Neutrophils # 6.6 K/mm3 (1.8-7.7) 08/06/22 12:11 Sodium 139 mmol/L (137-145) 08/06/22 12:11 Potassium 3.7 mmol/L (3.6-5.0) 08/06/22 12:11 Chloride 103.6 mmol/L (98-107) 08/06/22 12:11 Carbon Dioxide 26 mmol/L (22-30) 08/06/22 12:11 Anion Gap 13 mmol/L 08/06/22 12:11 BUN 18 mg/dL (7-17) H 08/06/22 12:11 Creatinine 0.4 mg/dL (0.6-1.2) L 08/06/22 12:11 Estimated GFR > 60 ml/min 08/06/22 12:11 BUN/Creatinine Ratio 45 % 08/06/22 12:11 Glucose 93 mg/dL (65-100) 08/06/22 12:11 Calcium 8.0 mg/dL (8.4-10.2) L 08/06/22 12:11 Total Bilirubin 1.40 mg/dL (0.1-1.2) H 08/02/22 04:24 AST 42 units/L (5-40) H 08/02/22 04:24 ALT 26 units/L (7-56) 08/02/22 04:24 Alkaline Phosphatase 411 units/L (35-129) H 08/02/22 04:24 Total Protein 5.3 g/dL (6.3-8.2) L 08/02/22 04:24 Albumin 2.9 g/dL (3.9-5) L 08/02/22 04:24 Albumin/Globulin Ratio 1.2 % 08/02/22 04:24 Robbins/IV: Voiding Method External Female Catheter Active Medications - Current Medications Current Medications: Generic Name Dose Route Start Last Admin Trade Name Freq PRN Reason Stop Dose Admin Acetaminophen 650 mg 08/01/22 19:24 Acetaminophen 325 Mg Tab PO Q4H PRN Pain MILD(1-3)/Fever >100.5/SESAY Acetaminophen 650 mg 08/02/22 12:36 Acetaminophen 650 Mg Rect Supp [place] Q4H PRN Pain MILD(1-3)/Fever >100.5/SESAY Enoxaparin Sodium 40 mg 08/03/22 10:00 08/06/22 09:51 Enoxaparin 40 Mg/0.4 Ml Inj SUB-Q 40 mg QDAY FELI Administration Hydromorphone HCl 0.5 mg 08/01/22 19:24 Hydromorphone 0.5 Mg/0.5 Ml Inj IV Q3H PRN Pain , Severe (7-10) Ketorolac Tromethamine 15 mg 08/02/22 12:36 08/05/22 10:55 Ketorolac 30 Mg/1 Ml Inj IV 08/07/22 12:35 15 mg Q6H PRN Administration Pain, Moderate (4-6) Morphine Sulfate 2 mg 08/02/22 12:36 08/06/22 18:36 Morphine 2 Mg/1 Ml Inj IV 2 mg Q4H PRN Administration Pain, Moderate (4-6) Morphine Sulfate 4 mg 08/02/22 12:36 Morphine 4 Mg/1 Ml Inj IV Q4H PRN Pain , Severe (7-10) Ondansetron HCl 4 mg 08/01/22 19:00 Ondansetron 4 Mg/2 Ml Inj IV Q8H PRN Nausea And Vomiting Sodium Chloride 10 ml 08/01/22 22:00 08/06/22 09:51 Sodium Chloride 0.9% 10 Ml Flush Syringe IV 10 ml BID FELI Administration Sodium Chloride 10 ml 08/01/22 19:00 Sodium Chloride 0.9% 10 Ml Flush Syringe IV PRN PRN LINE FLUSH Sodium Chloride 10 ml 08/02/22 13:00 Sodium Chloride 0.9% 10 Ml Flush Syringe IV 08/12/22 23:59 PRN NR
[2022-08-07] MEDS: MORPHINE 2 MG/1 ML INJ IV PRN ×2 (03:11→20:09)
[2022-08-07] MEDS: ENOXAPARIN 40 MG/0.4 ML INJ SUB-Q SCH (09:32)
--- NOTE | 2022-08-07 19:56 | Progress Note ---
Assessment and Plan Assessment and plan: 82-year-old with history of severe dementia had a fall at home yesterday and is in severe pain. at bedside. Very poor historian. says she had a fall and unable to walk since then. Pain is about 10 on a scale of 1-10. Patient had a right hip fracture in the past. Any movement is an exacerbating factor. Rest is a relieving factor. Pain is sharp in nature. Patient is alert but not oriented to time and place and person. wants a full code. CODE STATUS was discussed in the emergency room. #Left femoral shaft fracture status post closed repair with intramedullary nail insertion and left femur Visualized on x-ray of left femur Orthopedic surgery consulted; appreciate recs Continue as needed analgesics. Physical and Occupational Therapy consulted; recommended subacute rehab. #Hypernatremiaresolved Sodium 149--> 143 Likely secondary to dehydration/decreased p.o. intake. Encouraging patient to consume food after surgery. If dementia prevents patient from consuming p.o. intake, IV fluids can be initiated. #Advanced dementia Continue supportive management and redirection. -Was living with her #Advanced care planning -Disease education conducted, care plan discussed, diagnoses discussed, prognosis discussed, and patient acknowledges understanding with care plan -Time: +30 min #Discharge planning - Patient is pending rehab authorization. - Case management has been made aware. Disposition Plan: Pending rehab placement, needs authorization from insurance Discussed with nursing staff and spring encaser. History Interval history: Patient is alert, confused and disoriented with fluent speech. Unable to provide any relevant history. Vital signs and labs stable. Discharge pending rehab placement. is present at bedside. Patient is unable to recognize her . Pain seems to be controlled. No acute events reported by nursing staff. Hospitalist Physical - Constitutional Vitals: Temp Pulse Resp BP Pulse Ox 97.6 F 107 H 18 133/83 96 08/07/22 16:34 08/07/22 16:34 08/07/22 16:34 08/07/22 16:34 08/07/22 16:34 General appearance: Present: no acute distress, well-nourished, other (demented at baseline) - EENT Eyes: Present: PERRL, EOM intact ENT: hearing intact, clear oral mucosa - Neck Neck: Present: supple - Respiratory Respiratory effort: normal Respiratory: bilateral: CTA - Cardiovascular Rhythm: regular - Extremities Extremities: No edema Extremity abnormal: other (Left lower extremity: No evidence of local complications of the surgery) Results - Labs CBC & Chem 7: 08/06/22 12:11 08/06/22 12:11 Labs: Laboratory Last Values WBC 8.1 K/mm3 (4.5-11.0) 08/06/22 12:11 RBC 3.65 M/mm3 (3.65-5.03) 08/06/22 12:11 Hgb 10.8 gm/dl (10.1-14.3) 08/06/22 12:11 Hct 31.5 % (30.3-42.9) 08/06/22 12:11 MCV 86 fl (79-97) 08/06/22 12:11 MCH 30 pg (28-32) 08/06/22 12:11 MCHC 34 % (30-34) 08/06/22 12:11 RDW 15.2 % (13.2-15.2) 08/06/22 12:11 Plt Count 168 K/mm3 (140-440) 08/06/22 12:11 Lymph % (Auto) 11.0 % (13.4-35.0) L 08/06/22 12:11 [place] % (Auto) 6.1 % (0.0-7.3) 08/06/22 12:11 Eos % (Auto) 1.6 % (0.0-4.3) 08/06/22 12:11 Baso % (Auto) 0.0 % (0.0-1.8) 08/06/22 12:11 Lymph # (Auto) 0.9 K/mm3 (1.2-5.4) L 08/06/22 12:11 [place] # (Auto) 0.5 K/mm3 (0.0-0.8) 08/06/22 12:11 Eos # (Auto) 0.1 K/mm3 (0.0-0.4) 08/06/22 12:11 Baso # (Auto) 0.0 K/mm3 (0.0-0.1) 08/06/22 12:11 Seg Neutrophils % 81.3 % (40.0-70.0) H 08/06/22 12:11 Seg Neutrophils # 6.6 K/mm3 (1.8-7.7) 08/06/22 12:11 Sodium 139 mmol/L (137-145) 08/06/22 12:11 Potassium 3.7 mmol/L (3.6-5.0) 08/06/22 12:11 Chloride 103.6 mmol/L (98-107) 08/06/22 12:11 Carbon Dioxide 26 mmol/L (22-30) 08/06/22 12:11 Anion Gap 13 mmol/L 08/06/22 12:11 BUN 18 mg/dL (7-17) H 08/06/22 12:11 Creatinine 0.4 mg/dL (0.6-1.2) L 08/06/22 12:11 Estimated GFR > 60 ml/min 08/06/22 12:11 BUN/Creatinine Ratio 45 % 08/06/22 12:11 Glucose 93 mg/dL (65-100) 08/06/22 12:11 Calcium 8.0 mg/dL (8.4-10.2) L 08/06/22 12:11 Total Bilirubin 1.40 mg/dL (0.1-1.2) H 08/02/22 04:24 AST 42 units/L (5-40) H 08/02/22 04:24 ALT 26 units/L (7-56) 08/02/22 04:24 Alkaline Phosphatase 411 units/L (35-129) H 08/02/22 04:24 Total Protein 5.3 g/dL (6.3-8.2) L 08/02/22 04:24 Albumin 2.9 g/dL (3.9-5) L 08/02/22 04:24 Albumin/Globulin Ratio 1.2 % 08/02/22 04:24 Robbins/IV: Voiding Method External Female Catheter Active Medications - Current Medications Current Medications: Generic Name Dose Route Start Last Admin Trade Name Freq PRN Reason Stop Dose Admin Acetaminophen 650 mg 08/01/22 19:24 Acetaminophen 325 Mg Tab PO Q4H PRN Pain MILD(1-3)/Fever >100.5/SESAY Acetaminophen 650 mg 08/02/22 12:36 Acetaminophen 650 Mg Rect Supp [place] Q4H PRN Pain MILD(1-3)/Fever >100.5/SESAY Enoxaparin Sodium 40 mg 08/03/22 10:00 08/07/22 09:32 Enoxaparin 40 Mg/0.4 Ml Inj SUB-Q 40 mg QDAY FELI Administration Hydromorphone HCl 0.5 mg 08/01/22 19:24 Hydromorphone 0.5 Mg/0.5 Ml Inj IV Q3H PRN Pain , Severe (7-10) Morphine Sulfate 2 mg 08/02/22 12:36 08/07/22 03:11 Morphine 2 Mg/1 Ml Inj IV 2 mg Q4H PRN Administration Pain, Moderate (4-6) Morphine Sulfate 4 mg 08/02/22 12:36 Morphine 4 Mg/1 Ml Inj IV Q4H PRN Pain , Severe (7-10) Ondansetron HCl 4 mg 08/01/22 19:00 Ondansetron 4 Mg/2 Ml Inj IV Q8H PRN Nausea And Vomiting Sodium Chloride 10 ml 08/01/22 22:00 08/07/22 09:33 Sodium Chloride 0.9% 10 Ml Flush Syringe IV 10 ml BID FELI Administration Sodium Chloride 10 ml 08/01/22 19:00 Sodium Chloride 0.9% 10 Ml Flush Syringe IV PRN PRN LINE FLUSH Sodium Chloride 10 ml 08/02/22 13:00 Sodium Chloride 0.9% 10 Ml Flush Syringe IV 08/12/22 23:59 PRN NR
[2022-08-08] MEDS: ENOXAPARIN 40 MG/0.4 ML INJ SUB-Q SCH (09:13)
--- NOTE | 2022-08-08 12:53 | Progress Note ---
Assessment and Plan Assessment and plan: 82-year-old with history of severe dementia had a fall at home yesterday and is in severe pain. at bedside. Very poor historian. says she had a fall and unable to walk since then. Pain is about 10 on a scale of 1-10. Patient had a right hip fracture in the past. Any movement is an exacerbating factor. Rest is a relieving factor. Pain is sharp in nature. Patient is alert but not oriented to time and place and person. wants a full code. CODE STATUS was discussed in the emergency room. #Left femoral shaft fracture status post closed repair with intramedullary nail insertion and left femur Visualized on x-ray of left femur Orthopedic surgery consulted; appreciate recs Continue as needed analgesics. Physical and Occupational Therapy consulted; recommended subacute rehab. #Hypernatremiaresolved Sodium 149--> 143 Likely secondary to dehydration/decreased p.o. intake. Encouraging patient to consume food after surgery. If dementia prevents patient from consuming p.o. intake, IV fluids can be initiated. #Advanced dementia Continue supportive management and redirection. -Was living with her #Advanced care planning -Disease education conducted, care plan discussed, diagnoses discussed, prognosis discussed, and patient acknowledges understanding with care plan -Time: +30 min #Discharge planning - Patient is pending rehab authorization. - Case management has been made aware. Disposition Plan: Pending subacute rehab authorization Total Time Spent with Patient (Minutes): 30 minutes History Interval history: No acute events overnight. Hospitalist Physical - Constitutional Vitals: Temp Pulse Resp BP Pulse Ox 97.5 F L 76 16 139/77 93 08/08/22 05:27 08/08/22 05:27 08/08/22 09:00 08/08/22 05:27 08/08/22 10:00 General appearance: Present: no acute distress, well-nourished, other (demented at baseline) - EENT Eyes: Present: PERRL, EOM intact ENT: hearing intact, clear oral mucosa, dentition normal - Neck Neck: Present: supple, normal ROM - Respiratory Respiratory effort: normal Respiratory: bilateral: CTA - Cardiovascular Rhythm: regular Heart Sounds: Present: S1 & S2 - Extremities Extremities: no ischemia, pulses intact, pulses symmetrical, No edema, normal temperature, normal color Peripheral Pulses: within normal limits - Abdominal General gastrointestinal: soft, non-tender, non-distended, normal bowel sounds - Integumentary Integumentary: Present: clear, warm, dry - Psychiatric Psychiatric: appropriate mood/affect - Neurologic Neurologic: CNII-XII intact, other (Alert and oriented x1) - Allied Health Allied health notes reviewed: nursing, social work, case management Results - Labs CBC & Chem 7: 08/06/22 12:11 08/06/22 12:11 Labs: Laboratory Last Values WBC 8.1 K/mm3 (4.5-11.0) 08/06/22 12:11 RBC 3.65 M/mm3 (3.65-5.03) 08/06/22 12:11 Hgb 10.8 gm/dl (10.1-14.3) 08/06/22 12:11 Hct 31.5 % (30.3-42.9) 08/06/22 12:11 MCV 86 fl (79-97) 08/06/22 12:11 MCH 30 pg (28-32) 08/06/22 12:11 MCHC 34 % (30-34) 08/06/22 12:11 RDW 15.2 % (13.2-15.2) 08/06/22 12:11 Plt Count 168 K/mm3 (140-440) 08/06/22 12:11 Lymph % (Auto) 11.0 % (13.4-35.0) L 08/06/22 12:11 [place] % (Auto) 6.1 % (0.0-7.3) 08/06/22 12:11 Eos % (Auto) 1.6 % (0.0-4.3) 08/06/22 12:11 Baso % (Auto) 0.0 % (0.0-1.8) 08/06/22 12:11 Lymph # (Auto) 0.9 K/mm3 (1.2-5.4) L 08/06/22 12:11 [place] # (Auto) 0.5 K/mm3 (0.0-0.8) 08/06/22 12:11 Eos # (Auto) 0.1 K/mm3 (0.0-0.4) 08/06/22 12:11 Baso # (Auto) 0.0 K/mm3 (0.0-0.1) 08/06/22 12:11 Seg Neutrophils % 81.3 % (40.0-70.0) H 08/06/22 12:11 Seg Neutrophils # 6.6 K/mm3 (1.8-7.7) 08/06/22 12:11 Sodium 139 mmol/L (137-145) 08/06/22 12:11 Potassium 3.7 mmol/L (3.6-5.0) 08/06/22 12:11 Chloride 103.6 mmol/L (98-107) 08/06/22 12:11 Carbon Dioxide 26 mmol/L (22-30) 08/06/22 12:11 Anion Gap 13 mmol/L 08/06/22 12:11 BUN 18 mg/dL (7-17) H 08/06/22 12:11 Creatinine 0.4 mg/dL (0.6-1.2) L 08/06/22 12:11 Estimated GFR > 60 ml/min 08/06/22 12:11 BUN/Creatinine Ratio 45 % 08/06/22 12:11 Glucose 93 mg/dL (65-100) 08/06/22 12:11 Calcium 8.0 mg/dL (8.4-10.2) L 08/06/22 12:11 Total Bilirubin 1.40 mg/dL (0.1-1.2) H 08/02/22 04:24 AST 42 units/L (5-40) H 08/02/22 04:24 ALT 26 units/L (7-56) 08/02/22 04:24 Alkaline Phosphatase 411 units/L (35-129) H 08/02/22 04:24 Total Protein 5.3 g/dL (6.3-8.2) L 08/02/22 04:24 Albumin 2.9 g/dL (3.9-5) L 08/02/22 04:24 Albumin/Globulin Ratio 1.2 % 08/02/22 04:24 Robbins/IV: Voiding Method Incontinent Active Medications - Current Medications Current Medications: Generic Name Dose Route Start Last Admin Trade Name Freq PRN Reason Stop Dose Admin Acetaminophen 650 mg 08/01/22 19:24 Acetaminophen 325 Mg Tab PO Q4H PRN Pain MILD(1-3)/Fever >100.5/SESAY Acetaminophen 650 mg 08/02/22 12:36 Acetaminophen 650 Mg Rect Supp [place] Q4H PRN Pain MILD(1-3)/Fever >100.5/SESAY Enoxaparin Sodium 40 mg 08/03/22 10:00 08/08/22 09:13 Enoxaparin 40 Mg/0.4 Ml Inj SUB-Q 40 mg QDAY FELI Administration Hydromorphone HCl 0.5 mg 08/01/22 19:24 Hydromorphone 0.5 Mg/0.5 Ml Inj IV Q3H PRN Pain , Severe (7-10) Morphine Sulfate 2 mg 08/02/22 12:36 08/07/22 20:09 Morphine 2 Mg/1 Ml Inj IV 2 mg Q4H PRN Administration Pain, Moderate (4-6) Morphine Sulfate 4 mg 08/02/22 12:36 Morphine 4 Mg/1 Ml Inj IV Q4H PRN Pain , Severe (7-10) Ondansetron HCl 4 mg 08/01/22 19:00 Ondansetron 4 Mg/2 Ml Inj IV Q8H PRN Nausea And Vomiting Sodium Chloride 10 ml 08/01/22 22:00 08/08/22 09:13 Sodium Chloride 0.9% 10 Ml Flush Syringe IV 10 ml BID FELI Administration Sodium Chloride 10 ml 08/01/22 19:00 Sodium Chloride 0.9% 10 Ml Flush Syringe IV PRN PRN LINE FLUSH Sodium Chloride 10 ml 08/02/22 13:00 Sodium Chloride 0.9% 10 Ml Flush Syringe IV 08/12/22 23:59 PRN NR
--- NOTE | 2022-08-08 13:07 | XRay Report ---
LEFT FEMUR 2 VIEWS INDICATION: post op evaluation, s/p IM nailing distal femur fx. COMPARISON: 08/02/2022 IMPRESSION: Internal fixation of femur is again noted. Fracture through the distal shaft of the femu r with mild angulation and displacement appears unchanged since the operative films dated 08/02/2022. No new acute abnormality is detected. Signer Name: Matt Martinez Jr, MD Signed: 08/08/2022 1:03 PM Workstation Name: [id number]
[2022-08-08] MEDS: MORPHINE 2 MG/1 ML INJ IV PRN (14:57)
--- NOTE | 2022-08-08 16:30 | Discharge Summary ---
Providers - Providers Date of Admission: 08/01/22 19:24 Date of discharge: 08/08/22 Attending physician: GREG NORTH MD 08/01/22 19:24 Consult to Physician [CONS] Routine Comment: Consulting Provider: ROBBY BRANDT Physician Instructions: Reason For Exam: Fx Femur shaft 08/02/22 12:36 Consult to Case Management [CONS] Routine Services Needed at Discharge: Other Notified:: yes Additional Physician Instructions: Assess Discharge needs. Physical Therapy Evaluation and Treat [CONS] Routine Comment: Reason For Exam: Eval and Treat 08/02/22 13:53 Occupational Therapy Evaluate and Treat [CONS] Routine Comment: Reason For Exam: Debility 08/05/22 09:16 Occupational Therapy Evaluate and Treat [CONS] Stat Comment: Eval and Treat Reason For Exam: Occupational Therapy Primary care physician: AUTO DAMAGE ADJUSTER Hospitalization Reason for admission: Distal fracture of the left femur Condition: Stable Pertinent studies: Reviewed. Procedures: Closed repair of left femur fracture with placement of intramedullary nail Hospital course: The patient is an 82-year-old woman with past medical history of severe dementia who presented to the ED after experiencing 1 week of acute left lower extremity pain and inability to ambulate. The patient's endorses her acutely having 10 out of 10 pain after coming in and seeing his clutching her left leg while in the recliner. The patient's presented at that outside hospitals, and no acute etiology was found. In the ED, the patient was found to be in severe pain. She underwent x-ray of the left femur revealing a left femoral shaft fracture. Orthopedic surgery was consulted for further management. The patient underwent closed repair with intramedullary nail insertion of her left femur the fall. The patient is since been evaluated by physical and Occupational Therapy, they recommended subacute rehab. Patient is medically cleared for discharge. Disposition: [facility] Final Discharge Diagnosis (Prints w/discharge instructions): Left femoral shaft fracture status post closed repair with intramedullary nail insertion, hypernatremia, advanced dementia Core Measure Documentation - Palliative Care Palliative Care/ Comfort Measures: Not Applicable - Core Measures Any of the following diagnoses?: none Exam - Constitutional Vitals: Temp Pulse Resp BP Pulse Ox 97 F L 71 20 125/54 97 08/08/22 13:00 08/08/22 13:00 08/08/22 13:00 08/08/22 13:00 08/08/22 13:00 General appearance: Present: no acute distress, cachectic, other (Dementia at baseline) - EENT Eyes: Present: PERRL, EOM intact ENT: hearing intact, clear oral mucosa, dentition normal - Neck Neck: Present: supple, normal ROM - Respiratory Respiratory effort: normal Respiratory: bilateral: CTA - Cardiovascular Rhythm: regular Heart Sounds: Present: S1 & S2 - Extremities Extremities: no ischemia, pulses intact, pulses symmetrical, No edema, normal temperature, normal color Extremity abnormal: tenderness (Appropriate tenderness of left distal femur) Peripheral Pulses: within normal limits - Abdominal General gastrointestinal: Present: soft, non-tender, non-distended, normal bowel sounds Female genitourinary: Present: deferred - Rectal Rectal Exam: deferred - Integumentary Integumentary: Present: clear, warm, dry - Musculoskeletal Musculoskeletal: generalized weakness - Psychiatric Psychiatric: appropriate mood/affect - Neurologic Neurologic: CNII-XII intact, other (Alert and oriented x1) - Allied Health Allied health notes reviewed: nursing Plan Activity: advance as tolerated Diet: regular Additional Instructions: The patient is an 82-year-old woman with past medical history of severe dementia who presented to the ED after experiencing 1 week of acute left lower extremity pain and inability to ambulate. The patient's endorses her acutely having 10 out of 10 pain after coming in and seeing his clutching her left leg while in the recliner. The patient's presented at that outside hospitals, and no acute etiology was found. In the ED, the patient was found to be in severe pain. She underwent x-ray of the left femur revealing a left femoral shaft fracture. Orthopedic surgery was consulted for further management. The patient underwent closed repair with intramedullary nail insertion of her left femur the fall. The patient is since been evaluated by physical and Occupational Therapy, they recommended subacute rehab. Patient is medically cleared for discharge. Care Plan Goals: Patient is medically clear for discharge. Assessment: The patient is an 82-year-old woman with past medical history of severe dementia who presented to the ED after experiencing 1 week of acute left lower extremity pain and inability to ambulate. The patient's endorses her acutely having 10 out of 10 pain after coming in and seeing his clutching her left leg while in the recliner. The patient's presented at that outside hospitals, and no acute etiology was found. In the ED, the patient was found to be in severe pain. She underwent x-ray of the left femur revealing a left femoral shaft fracture. Orthopedic surgery was consulted for further management. The patient underwent closed repair with intramedullary nail insertion of her left femur the fall. The patient is since been evaluated by physical and Occupational Therapy, they recommended subacute rehab. Patient is medically cleared for discharge. Follow up with: PRIMARY CAREMD [Primary Care Provider] - 7 Days
[2022-08-08 18:01] VITALS: BP 145/91
== END 2022-08-08 21:07 | DRG 481 ==
LOC: ED 03:35 → 3A 19:24
PROVIDERS: ADMIT Internal Medicine; ATTEND Student in an Organized Health Care Education/Training Program
PROC: 0QS936Z Reposition Left Femoral Shaft with Intramedullary Internal Fixation Device, Percutaneous Approach (ICD-10-PCS; principal; 2022-08-02)
DX: S72.332A Displaced oblique fracture of shaft of left femur, initial encounter for closed fracture (principal); E87.0 Hyperosmolality and hypernatremia; F01.50 Vascular dementia, unspecified severity, without behavioral disturbance, psychotic disturbance, mood disturbance, and anxiety; Z20.822 Contact with and (suspected) exposure to COVID-19; W18.39XA Other fall on same level, initial encounter; Y93.89 Activity, other specified; Y92.89 Other specified places as the place of occurrence of the external cause; Y99.8 Other external cause status; Z82.49 Family history of ischemic heart disease and other diseases of the circulatory system; Z96.642 Presence of left artificial hip joint
CPT/HCPCS: 36415; 71045; 80048; 80053; 85025; 93005; 94760; 99285; G0378; J3490; C1713; C1769; J0690; J1100; J1170; J1644; J1650; J1885; J2270; J2405; J2704; J3010; J7030; J7042; J7070; J7120; U0003